=== PATIENT | male | born 1965 | race Caucasian/White ===

== ENCOUNTER 2016-10-08 19:51 | Emergency (ER) | payer OTHER ==
[2016-10-08] MEDS ORDERED: LET GEL TOPICAL 1 EA SYR TP ONE (19:53)
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
[2016-10-08 20:05] VITALS: BP 127/74; PULSE 76; RESP 14; TEMP 98.2; O2SAT 95
== END 2016-10-08 20:24 | disposition home or self-care (01) ==
LOC: CED 19:51
PROC: 0HQHXZZ Repair Right Upper Leg Skin, External Approach (ICD-10-PCS; principal; 2016-10-08)
DX: S71.011A Laceration without foreign body, right hip, initial encounter (principal); V18.0XXA Pedal cycle driver injured in noncollision transport accident in nontraffic accident, initial encounter; Y92.410 Unspecified street and highway as the place of occurrence of the external cause; Y99.8 Other external cause status; Y93.55 Activity, bike riding